=== PATIENT | female | born 1965 | race Hispanic/Latino ===

== ENCOUNTER 2021-04-30 19:41 | Emergency (ER) | payer BC ==
[~2021-04-30] VITALS: Ht 160 cm; Wt 75.7 kg
== END 2021-04-30 21:51 | disposition home or self-care (01) ==
LOC: FSED 19:50
DX: R05 Cough (principal); R06.02 Shortness of breath; J06.9 Acute upper respiratory infection, unspecified
CPT/HCPCS: 99282